=== PATIENT | male | born 1970 | race Two or more races ===

== ENCOUNTER 2023-10-29 06:46 | Day surgery (SDC) | payer OTHER ==
[~2023-10-29] VITALS: Ht 165.1 cm; Wt 81.6 kg
[2023-10-29] MEDS ORDERED: MEPERIDINE 100 MG INJ. 100 MG/ML VIAL ONE (07:09)
[2023-10-29] MEDS ORDERED: MIDAZOLAM HCL 5 MG/5 ML VIAL ONE (07:09)
[2023-10-29 09:30] VITALS: O2SAT 99
[2023-10-29 18:58] VITALS: BP_SYST 111; PULSE 63; RESP 16
== END 2023-10-29 10:55 | disposition home or self-care (01) ==
LOC: SDS 06:46 → SMU 06:47 → SDS 10:55
PROVIDERS: ATTEND Internal Medicine Gastroenterology
DX: Z12.11 Encounter for screening for malignant neoplasm of colon (principal); K64.8 Other hemorrhoids; I10 Essential (primary) hypertension; E78.5 Hyperlipidemia, unspecified; E11.9 Type 2 diabetes mellitus without complications; Z79.84 Long term (current) use of oral hypoglycemic drugs; Z79.899 Other long term (current) drug therapy
CPT/HCPCS: 45378; 99152; 82962; G0378; J2250; J2175